=== PATIENT | female | born 1965 | race American Indian/Alaskan Native ===

== ENCOUNTER 2021-02-07 05:39 | Day surgery (SDC) | payer MEDICAID ==
[2021-02-03 13:36] LABS: BASOPHILS % (AUTO) 0.8 % (0-1); EOSINOPHILS # (AUTO) 0.3 X10'3 (0-0.9); EOSINOPHILS % (AUTO) 5.7 % (0-6); LYMPHOCYTES # (AUTO) 1.5 X10'3 (1.1-4.8); LYMPHOCYTES % (AUTO) 28.6 % (21-51); MEAN CORPUSCULAR HEMOGLOBIN 32.1 PG (27.0-31.0); MEAN CORPUSCULAR HGB CONC 34.4 g/dL (33.0-36.5); MEAN CORPUSCULAR VOLUME 93.3 FL (78-98); MONOCYTES # (AUTO) 0.4 X10'3 (0-0.9); MONOCYTES % (AUTO) 7.7 % (2-12); NEUTROPHILS % (AUTO) 57.2 % (42-75); PRE OP HEMOGLOBIN 13.4 g/dL (12.0-16.0); PRE OP PLATELET COUNT 262 X10'3 (140-440); RED BLOOD COUNT 4.18 X10'6 (4.20-5.60); RED CELL DISTRIBUTION WIDTH 12.9 % (11.5-14.5)
[2021-02-03 13:41] LABS: ALBUMIN 3.3 G/DL (3.4-5.0); ALBUMIN/GLOBULIN RATIO 0.9 (1.1-1.5); ALKALINE PHOSPHATASE 68 IU/L (46-116); BLOOD UREA NITROGEN 13 MG/DL (7-18); BUN/CREATININE RATIO 15.5 (6.6-38.0); CALCIUM 8.4 MG/DL (8.5-10.1); CHLORIDE 106 MMOL/L (99-107); CREATININE 0.84 MG/DL (0.40-0.90); PRE OP ALT 22 U/L (30-65); PRE OP ANION GAP 10 (8-16); PRE OP BILIRUB, TOTAL 0.3 MG/DL (0.0-1.0); PRE OP GLUCOSE 106 MG/DL (70-104); PRE OP SODIUM 143 MMOL/L (135-145); TOTAL CARBON DIOXIDE 27.1 MMOL/L (24-32); TOTAL PROTEIN 6.9 G/DL (6.4-8.2); eGFR 70 ML/MIN
[2021-02-03 13:42] LABS: PRE OP AST 21 U/L (10-37); PRE OP POTASSIUM 3.6 MMOL/L (3.4-5.1)
[~2021-02-07] VITALS: Ht 166.4 cm; Wt 73.5 kg
[~2021-02-07 05:39] MED LIST: VALA100031 PO; cefazolin/dext.iso 2gm/50ml IV ONE; famotidine 20mg tablet PO ONE; ringers solution, lacted 1,000 ML IV SCH
[2021-02-07 06:30] VITALS: BP 108/69
[2021-02-07] MEDS ORDERED: BUPIVAcaine/PF 2.5mg/ml (0.25%) 10ml vial ONE (06:49)
[2021-02-07] MEDS ORDERED: ringers solution, lacted 1,000 ML IV SCH (07:10)
[2021-02-07] MEDS ORDERED: morphine 2 MG/ML inj. syringe IV PRN (07:10)
[2021-02-07] MEDS ORDERED: labetalol 5mg/ml 20ml inj. IV PRN (07:10)
[2021-02-07] MEDS ORDERED: morphine 4 MG/ML inj SYRINge IV PRN (07:10)
[2021-02-07] MEDS ORDERED: ondansetron/PF 4mg/2ml inj IV PRN (07:10)
[2021-02-07] MEDS ORDERED: hydrALAZINE 20mg/ml inj. IV PRN (07:10)
[2021-02-07] MEDS ORDERED: LIDOcaine 0.5% (5mg/ml) 50ml vial ONE ×2 (07:44→10:13)
[2021-02-07] MEDS ORDERED: fentaNYL/PF 50MCG/1 ML 2ML syringe ONE (09:56)
[2021-02-07] MEDS ORDERED: midazolam 1 mg/ML 2ml injection ONE (09:56)
[2021-02-07 10:24] VITALS: BP 110/66
--- NOTE | 2021-02-07 10:24 | NUR ---
Received from OR via , accompanied by Anesthesiologist DR TORRES and report given by Anesthesiolgist.AWAKENS TO VOICE. VITALS STABLE. DRESSING DI. MICAELA PAIN. FINGERS WARM AND PINK.
[2021-02-07 10:34] VITALS: BP 97/51
[2021-02-07 10:44] VITALS: BP 107/59
[2021-02-07 10:54] VITALS: BP 99/62
--- NOTE | 2021-02-07 11:04 | NUR ---
AWAKE AND ORIENTED. VITALS STABLE. DRESSING DI. MICAELA PAIN. HOME WITH HER SISTER AT THIS TIME.
== END 2021-02-07 11:04 | disposition home or self-care (01) ==
LOC: PAS 05:39
PROVIDERS: ATTEND Orthopaedic Surgery Hand Surgery
DX: G56.02 Carpal tunnel syndrome, left upper limb (principal); M65.342 Trigger finger, left ring finger; M65.332 Trigger finger, left middle finger; M65.312 Trigger thumb, left thumb; Z20.822 Contact with and (suspected) exposure to COVID-19; Z79.899 Other long term (current) drug therapy; Z98.51 Tubal ligation status; Z98.890 Other specified postprocedural states; Z87.891 Personal history of nicotine dependence; Z72.89 Other problems related to lifestyle
CPT/HCPCS: 26055; 36415; 64721; 80053; 82948; 85025; 93005; A6222; J0690; J2250; J3010; J3490; J7030; J7120; U0003; U0005; Z7506; Z7512; A4215